=== PATIENT | male | born 1985 | race Hispanic/Latino ===

== ENCOUNTER 2017-12-19 20:22 | Emergency (ER) | payer BC, OTHER ==
[2017-12-19 20:22] VITALS: BMI 33.0
[2017-12-19] MEDS ORDERED: Albuterol-Ipratrop 3 mg / 0.5 (3 ml) UD ONE (20:42)
[2017-12-19] MEDS ORDERED: Albuterol-Ipratrop 3 mg / 0.5 (3 ml) UD IH STA ×2 (20:44→21:46)
[2017-12-19] MEDS ORDERED: Albuterol-Ipratrop 3 mg / 0.5 (3 ml) UD INH STA (20:44)
--- NOTE | 2017-12-19 20:49 | ED PDOC ---
HPI: SOB/CHF/COPD Time Seen by Provider: 12/19/17 20:35 Chief Complaint (Nursing): Respiratory Distress Chief Complaint (Provider): wheezes History Per: Patient History/Exam Limitations: no limitations Onset/Duration Of Symptoms: Days (3 days) Current Symptoms Are (Timing): Still Present Additional Complaint(s): Pt. with wheezes today. Tried albuterol with mild relief. Took 12mg prednisone. Pt. [place] around [place] the park and symptoms continued. Pt. has had cough, nasal congestion, runny nose for a few days. Child with same. Feels like his asthma. Chest tightness. No headaches, dizziness, weakness, leg pain, back pain, fever. Past Medical History Reviewed: Nursing Documentation, Vital Signs Vital Signs: Last Vital Signs Temp Pulse 98 H 12/19/17 20:32 Resp 22 12/19/17 20:49 BP 156/84 H 12/19/17 20:32 Pulse Ox 98 12/19/17 20:50 - Medical History PMH: Asthma (MILD), Bronchitis (JUL 2015) Denies: Chronic Kidney Disease - Surgical History Surgical History: Appendectomy (2008) - Family History Family History: States: Diabetes (brother type I) - Home Medications Home Medications: Ambulatory Orders Medication Instructions Recorded Famotidine [Pepcid] 20 mg PO PRN PRN 11/27/15 Fluticasone Nasal [Flonase] 1 spr NS BID 11/27/15 Ibuprofen [Motrin Tab] 800 mg PO PRN PRN 11/27/15 Ketorolac Tromethamine [Toradol] 10 mg PO PRN PRN 11/27/15 Oxycodone HCl/Acetaminophen 1 tab PO PRN PRN 11/27/15 [Percocet 325 mg-5 mg] Oxycodone HCl/Acetaminophen 5 - 325 mg PO Q4 PRN 11/27/15 [Percocet 5-325 mg Tablet] diaZEpam [Valium] 10 mg PO HS 11/27/15 Azithromycin [Zithromax] 250 mg PO DAILY #6 dose 04/17/16 Prednisone [Deltasone] 60 mg PO DAILY 5 Days tablet 04/17/16 Albuterol Sulfate [Proair Hfa] 0.09 mg IH Q6H PRN #2 inh 12/19/17 Benzonatate [Tessalon Perles] 100 mg PO BID PRN 5 Days sgl 12/19/17 predniSONE [predniSONE Tab] 20 mg PO BID 5 Days tab 12/19/17 - Allergies Allergies/Adverse Reactions: Allergies Allergy/AdvReac Type Severity Reaction Status Date / Time prochlorperazine AdvReac MUSCLE Verified 11/26/15 09:11 [From Compazine] TWICHING prochlorperazine edisylate AdvReac MUSCLE Verified 11/26/15 09:11 [From Compazine] TWICHING prochlorperazine maleate AdvReac MUSCLE Verified 11/26/15 09:11 [From Compazine] TWICHING Review of Systems ROS Statement: Except As Marked, All Systems Reviewed And Found Negative ENT: Positive for: Nose Pain, Nose Congestion Respiratory: Positive for: Cough, Shortness of Breath, Wheezing Physical Exam - Reviewed Nursing Documentation Reviewed: Yes Vital Signs Reviewed: Yes - Physical Exam Appears: Positive for: Uncomfortable Head Exam: Positive for: ATRAUMATIC, NORMAL INSPECTION, NORMOCEPHALIC Skin: Positive for: Normal Color, Warm, DRY Eye Exam: Positive for: EOMI, Normal appearance, PERRL ENT: Positive for: Nasal Congestion Neck: Positive for: Normal, Painless ROM, Supple Cardiovascular/Chest: Positive for: Regular Rate, Rhythm Respiratory: Positive for: Decreased Breath Sounds, Wheezing (mild b/l). Negative for: Respiratory Distress Gastrointestinal/Abdominal: Positive for: Normal Exam, Soft. Negative for: Tenderness Back: Positive for: Normal Inspection. Negative for: L CVA Tenderness, R CVA Tenderness Extremity: Positive for: Normal ROM. Negative for: Tenderness, Pedal Edema Neurologic/Psych: Positive for: Alert, Oriented - Laboratory Results Result Diagrams: 12/19/17 23:20 12/19/17 23:20 Interpretation Of Abn Labs: 11.5 wbc, 3.4 k - ECG ECG: Positive for: Interpreted By Me, Viewed By Me ECG Rhythm: Positive for: Normal QRS, Normal ST Segment, Sinus Rhythm O2 Sat by Pulse Oximetry: 98 Pulse Ox Interpretation: Normal - Progress ED Course And Treament: 930: Stable. AAOx3. 1030: Will give mag as pt. still feels cough and wheezes. 1148: Stable. Feels much better after mag. Will dc. Fu with pcp. No dyspnea on ambulation. K low likely from albuterol use. - Critical Care Total Time (In Min): 30 Documented Critical Care: Time excludes all time spent performint seperately billable procedures Disposition - Clinical Impression Clinical Impression: Bronchitis with asthma, acute - Patient ED Disposition Is Patient to be Admitted: No Counseled Patient/Family Regarding: Studies Performed, Diagnosis, Need For Followup, Rx Given - Disposition Disposition: Routine/Home Disposition Time: 23:50 Condition: STABLE Additional Instructions: Return if not better in 3 days. Prescriptions: Albuterol Sulfate [Proair Hfa] 0.09 mg IH Q6H PRN #2 inh PRN Reason: Wheezing Benzonatate [Tessalon Perles] 100 mg PO BID PRN 5 Days sgl PRN Reason: Cough predniSONE [predniSONE Tab] 20 mg PO BID 5 Days tab Instructions: Acute Bronchitis, Asthma, Adult (DC) Forms: [facility] ([place]) - POA Present On Arrival: None
[2017-12-19] MEDS ORDERED: Magnesium Sulfate 2 gm/50 ml 2 GM/50 ML BAG IVPB ONE (22:18)
[2017-12-19] MEDS ORDERED: Sodium Chloride 0.9% 1,000 ML IV STA (22:18)
[2017-12-19] MEDS ORDERED: Magnesium Sulfate 2 gm/50 ml 2 GM/50 ML BAG ONE (22:40)
[2017-12-19 23:28] LABS: BASO % 0.4 % (0.0-2.0); EOS # 0.1 K/uL (0.0-0.7); HEMOGLOBIN 15.7 g/dL (12.0-18.0); LYMPH # 1.8 K/uL (1.0-4.3); MEAN CELL VOLUME 85.1 fl (80.0-94.0); MEAN CORPUSCULAR HEMOGLOBIN 29.9 pg (27.0-31.0); MEAN CORPUSCULAR HGB CONC 35.2 g/dL (33.0-37.0); MEAN PLATELET VOLUME 9.5 fl (7.2-11.7); MONO # 0.9 K/uL (0.0-0.8); MONO % 7.5 % (0.0-10.0); NEUT # 8.6 K/uL (1.8-7.0); NEUT % 75.1 % (50.0-75.0); NRBC % 0.1 % (0.0-0.0); RBC 5.23 Mil/uL (4.40-5.90); RED CELL DISTRIBUTION WIDTH 12.2 % (11.5-14.5); WHITE BLOOD COUNT 11.5 K/uL (4.8-10.8)
[2017-12-19 23:39] LABS: BLOOD UREA NITROGEN 16 mg/dl (9-20); CALCIUM 9.4 mg/dL (8.4-10.2); GFR AFRICAN-AMERICAN > 60; GFR NON-AFRICAN AMERICAN > 60
[2017-12-20 00:16] VITALS: BP 134/82; PULSE 92; RESP 20; TEMP 98.8; O2SAT 99
--- NOTE | 2017-12-20 14:20 | RAD ---
Date of service: 12/19/2017 HISTORY: dyspnea COMPARISON: Chest radiograph 04/17/2016. FINDINGS: LUNGS: No active pulmonary disease. PLEURA: No significant pleural effusion identified, no pneumothorax apparent. CARDIOVASCULAR: Normal. OSSEOUS STRUCTURES: No significant abnormalities. VISUALIZED UPPER ABDOMEN: Normal. OTHER FINDINGS: None. IMPRESSION: No active disease.
--- NOTE | 2017-12-21 10:12 | CARD ---
APPROVED REPORT Date of service: 12/19/2017 EKG Measurement Heart [id number] <Conclusion> Normal sinus rhythm Normal ECG
== END 2017-12-20 00:05 | disposition home or self-care (01) ==
LOC: H.ER 20:22
DX: J45.909 Unspecified asthma, uncomplicated (principal)
CPT/HCPCS: 71045; 80048; 84484; 85025; 93005; 94150; 94640; 99285; J7030